=== PATIENT | female | born 1965 | race Caucasian/White ===

== ENCOUNTER 2018-05-25 18:10 | Emergency (ER) | payer OTHER ==
[~2018-05-25] VITALS: Ht 165.1 cm; Wt 88.3 kg
[2018-05-25 18:47] LABS: CARBON DIOXIDE (BICARBONATE) 26.6 MEQ/L (20-31)
[2018-05-25 18:54] LABS: ALBUMIN 4.3 g/dL (3.2-4.8); CHLORIDE 107 mEq/L (99-109); POTASSIUM 3.6 mEq/L (3.7-5.4); SODIUM 141 mEq/L (136-147)
[2018-05-25 18:56] LABS: GLUCOSE 125 mg/dL (70-99); TOTAL PROTEIN 6.8 g/dL (6.4-8.3)
[2018-05-25 18:58] LABS: TOTAL BILIRUBIN 0.6 mg/dL (0.0-1.0)
[2018-05-25 18:59] LABS: SERUM ETHYL ALCOHOL < 10 mg/dL
[2018-05-25 19:00] LABS: GFR ESTIMATE (CALCULATED) > 59 mL/min/
[2018-05-25 19:01] LABS: ALKALINE PHOSPHATASE 74 IU/L (3-129)
[2018-05-25 19:02] LABS: AST (GOT) 19 IU/L (2-34); UREA NITROGEN (BUN) 12 mg/dL (9-23)
[2018-05-25 19:03] LABS: SALICYLATE < 5.0 MG/DL (15-30)
[2018-05-25 19:04] LABS: ACETAMINOPHEN (TYLENOL) < 10 mcg/mL (10-30); ALT (GPT) 19 IU/L (3-49)
[2018-05-25 19:55] LABS: APPEARANCE CLEAR ((CLEAR)); BILIRUBIN NEGATIVE; BLOOD NEGATIVE; COLOR STRAW ((YELLOW)); GLUCOSE (STRIP) NEGATIVE; KETONES NEGATIVE; LEUKOCYTES TRACE; NITRITE NEGATIVE; PROTEIN (STRIP) NEGATIVE; SPECIFIC GRAVITY 1.005 (1.000-1.030); UROBILINOGEN 0.2 MG/DL (0.2-1.0)
[2018-05-25 20:00] LABS: BACTERIA RARE /HPF; EPITHELIAL CELLS 1+ /HPF; MUCUS NONE SEEN /LPF; RED BLOOD CELLS 0-5 /HPF (0-5); WHITE BLOOD CELLS 0-5 /HPF (0-5)
[2018-05-25 22:21] LABS: HEMATOCRIT 36.6 % (36.0-46.0); HEMOGLOBIN 12.7 G/DL (11.9-15.5); MCH 31.1 PG (29.0-34.0); MCHC 34.7 G/DL (30.0-36.0); MCV 89.5 FL (83-99); PLATELET COUNT 275 K/uL (156-360); RBC DIS.WIDTH-CV 12.8 % (11.8-14.6); RBC DIS.WIDTH-SD 42.1 % (39-53); RED BLOOD COUNT 4.09 M/uL (3.80-5.20); WHITE BLOOD COUNT 6.7 K/uL (4.1-10.2)
[2018-05-25 22:25] LABS: CARBON DIOXIDE (BICARBONATE) 32.8 MEQ/L (20-31)
[2018-05-25 22:30] LABS: CHLORIDE 107 mEq/L (99-109); POTASSIUM 3.7 mEq/L (3.7-5.4); SODIUM 141 mEq/L (136-147)
[2018-05-25 22:31] LABS: GLUCOSE 104 mg/dL (70-99)
[2018-05-25 22:35] LABS: CREATININE 0.9 mg/dL (0.6-1.3); GFR ESTIMATE (CALCULATED) > 59 mL/min/
[2018-05-25 22:36] LABS: UREA NITROGEN (BUN) 13 mg/dL (9-23)
[2018-05-25] MEDS ORDERED: PREDNISONE50 MG PO (23:34)
[2018-05-25 23:59] VITALS: BP 147/88
== END 2018-05-26 00:04 | disposition home or self-care (01) ==
LOC: EME 18:10
PROVIDERS: Emergency Medicine
DX: T51.8X1A Toxic effect of other alcohols, accidental (unintentional), initial encounter (principal); R06.00 Dyspnea, unspecified; R05 Cough; J02.9 Acute pharyngitis, unspecified; J45.909 Unspecified asthma, uncomplicated
CPT/HCPCS: 71046; 80048 91; 80053; 81003; 82693 90; 82803; 83605; 83930; 85027; 94640; 99281; 99285; G0480; J7512